=== PATIENT | male | born 1965 | race Caucasian/White ===

== ENCOUNTER 2025-06-12 15:19 | Outpatient (CLI) | payer OTHER ==
--- NOTE | 2025-06-13 19:21 | CARDIOLOGY REPORT ---
APPROVED REPORT EXAM: Comprehensive 2D, Doppler, and color-flow Echocardiogram. Patient Location: OUT-PATIENT Heart Rate: 76 bpm Rhythm: SINUS Indications DYSPNEA ON EXERTION Hybrid [employer]eder: none Previous echo: none 2D Dimensions RVDd 3.5 cm IVSd 0.8 (0.7-1.1cm) LVDd 3.9 cm PWd 1.1 (0.7-1.1cm) IVSs 1.0 (0.8-1.2cm) LVDs 3.0 (2.5-4.0cm) PWs 1.0 (0.8-1.2cm) LVOT Diameter 2.21 (1.8-2.4cm) LVEF(%) 57.9 (>50%) Ao Asc Diam.2.90 cm LA Volume 21 (18-58mL) FS (%) 23.7 % SV 32.3 ml M-Mode Dimensions Left Atrium(MM) 2.66 (2.5-4.0cm) Aortic Root 3.71 (2.2-3.7cm) Aortic Cusp Exc 1.72 (1.5-2.0cm) Biplane 2D LA Volumes LA ESV A2C 24.16 mL/m2 LA ESV A4C 16.75 mL/m2 LA ESV Index 12.27 mL/m2 Aortic Valve AoV Peak Daquan. 131.6 cm/s AoV VTI 23.5 cm AO Peak GR. 6.9 mmHg AO Mean GR. 4 mmHg LVOT VTI 20.69 cm LVOT Peak Daquan. 103.2 cm/s INDY (VMAX) 2.99 cm2 INDY (VTI) 3.36 cm2 Mitral Valve MV E Velocity 58.5 cm/s MV DECEL TIME 255 ms MV A Velocity 72.4 cm/s MV PHT 51 ms E/A Ratio 0.8 MVA (PHT) 4.35 cm2 TDI E/Medial E' 8.8 Tricuspid Valve TR P. Velocity 207 cm/s RAP ESTIMATE 10 mmHg TR Peak Gr. 17 mmHg RVSP 27 mmHg Pulmonary Vein S2 Velocity 85.57 cm/s PVa [id number] msec LEFT VENTRICLE Normal LV size and wall thickness. Overall systolic function is low normal. LVEF is 55%. RIGHT VENTRICLE RV is normal size and function. ATRIA LA size is normal. AORTIC VALVE Trileaflet AV appears mildly sclerotic without stenosis or insufficiency. MITRAL VALVE Mild MV annular calcification without stenosis. Trace regurgitation. TRICUSPID VALVE TV appears structurally normal with trace regurgitation. PULMONIC VALVE Normal PV without stenosis, physiologic insufficiency. GREAT VESSELS Aortic root is upper limit normal in size. Ascending aorta is normal in size. IVC is not well visuali zed. PERICARDIUM Normal pericardium. No effusion. Other Information Study Quality: Adequate
== END 2025-06-12 23:59 | disposition home or self-care (01) ==
LOC: CARD DIAG 15:19
PROVIDERS: ATTEND Physician Assistant
DX: I08.8 Other rheumatic multiple valve diseases (principal); R06.09 Other forms of dyspnea
CPT/HCPCS: 93306